=== PATIENT | female | born 1950 | race Caucasian/White ===

== ENCOUNTER → 2023-10-10 10:31 | Outpatient (REF) | payer MEDICARE, OTHER, SELFPAY ==
[2023-10-10 11:37] LABS: ALT (SGPT) 12 U/L (0-35); AST (SGOT) 23 U/L (14-36); Albumin 3.7 g/dl (3.5-5.0); Alkaline Phosphatase 87 U/L (38-126); Blood Urea Nitrogen 13 mg/dl (7-17); Calcium 9.9 mg/dl (8.4-10.2); Carbon Dioxide 31 mmol/L (22-30); Chloride 99 mmol/L (98-107); Glucose 99 mg/dl (70-99); Potassium 3.9 mmol/L (3.5-5.1); Sodium 138 mmol/L (135-145); Total Bilirubin 0.7 mg/dl (0.2-1.3); Total Protein 6.2 g/dl (6.3-8.2); eGFR > 60.00
== END ==
LOC: REG 10:31
PROVIDERS: ATTENDING PHYSICIAN Family Medicine
DX: E87.6 Hypokalemia (principal)
CPT/HCPCS: 36415; 80053

== ENCOUNTER 2024-01-22 02:14 | Inpatient (IN) | payer MEDICARE, OTHER, SELFPAY ==
[2024-01-21 20:35] VITALS: BP 119/78
[2024-01-21 21:07] LABS: % Basophils 0.3 % (0-2); % Eosinophils 0.3 % (0-6); % Immature Granulocytes 0.3 % (0-0.5); % Monocytes 11.4 % (1.7-9.3); % Neutrophils 65.7 % (42.2-75.2); Absolute Lymphocytes 1.8 10^3/uL (1.2-3.4); Absolute Monocytes 0.9 10^3/uL (0.1-0.6); Absolute Neutrophils 5.3 10^3/uL (1.4-6.5); Hematocrit 37.7 % (37.0-47.0); Hemoglobin 13.8 g/dL (12.0-16.0); Mean Corp Hgb Conc. 36.6 g/dL (33.0-37.0); Mean Corpuscular Hgb 36.2 pg (27.0-31.0); Mean Platelet Volume 9.7 fL (7.4-10.4); Nucleated Red Blood Cells % 0 %; Platelet Count 210 10^3/uL (130-400); Red Blood Cell Count 3.81 10^6/uL (4.20-5.40); Red Cell Dist. Width 13.5 % (11.5-14.5)
[2024-01-21 21:33] LABS: ALT (SGPT) 13 U/L (0-35); AST (SGOT) 31 U/L (14-36); Albumin 4.1 g/dl (3.5-5.0); Alkaline Phosphatase 93 U/L (38-126); Blood Urea Nitrogen 23 mg/dl (7-17); Calcium 9.6 mg/dl (8.4-10.2); Carbon Dioxide 31 mmol/L (22-30); Chloride 89 mmol/L (98-107); Glucose 118 mg/dl (70-99); Potassium 2.5 mmol/L (3.5-5.1); Sodium 129 mmol/L (135-145); Total Bilirubin 0.9 mg/dl (0.2-1.3); Total Protein 6.4 g/dl (6.3-8.2)
[2024-01-21 21:44] LABS: Troponin I 0.032 ng/ml
[2024-01-21 21:49] VITALS: BMI 19.5
--- NOTE | 2024-01-21 21:52 | EDRN ---
Pt says she passed out four times today striking her head each time on hard wood floor. Pt says her legs got very wobbly and her hands got shaky so pt would try to grab counter but her reach was off and she passed out and fell. LOC 'not very long,
minute tops' per pt. Pt does not use ambulatory aides. Pt finished 4 weeks of keflex 8-9 days ago and says it destroyed her appetite so she has been trying to eat yogurt without much success.Pt has headache currently and her neck hurts. Pt denies
cp, sob, abd pain, n/v/d/constipation, fever/cough/chills. Pt has generalized weakness.
[2024-01-21 22:00] VITALS: BP 137/81
--- NOTE | 2024-01-21 22:25 | EDRN ---
Cleaned all new skin tears on lower anterior legs with NS, pushed back all skin where possible, applied abx on all - bandaids on smaller ones and telfa dressing with paper tape on larger one.
--- NOTE | 2024-01-21 22:31 | ED.GENMED ---
History of Present Illness
General
Chief Complaint: Fainting/Passed Out
Source: patient and previous hospital records (Previous hospitalization May 2023 for somewhat similar complaint, noted to be hypokalemic, hyponatremic.)
Exam Limitations: none
Time Seen by Provider: 01/21/24 22:02
Nursing documentation reviewed up to this point in time: agreed with
History of Present Illness
History of Present Illness:
This is a papito 73-year-old woman who resides at home with her sister. She has history of hypertension, hyperlipidemia, TIA, chronic neck and back pain with previous hospitalization May 2023 for somewhat similar complaints of syncopal event,
generalized weakness related to hypokalemia, dehydration/acute kidney injury.
She complains of generalized weakness and recurrent syncopal events today while she was at a friend's house watching her dog. She states her arms and legs feel weak, shaky and she has had 4 episodes of syncope with prodrome of lightheadedness,
tunnel vision. She suspects she struck her head but is unsure. She does admit to moderate generalized headache as well as some mild posterior neck pain. No radicular signs or symptoms.
She takes no anticoagulants.
She has been compliant with daily potassium tablet. No recent change in medications.
No recent URI nor GI illness. She denies cough or chest pain, denies fever nor chills.
She did suffer a significant avulsion injury left anterior lower leg/striking her leg on a golf cart, July of this year. Tdap given at that time. She has had very slow wound healing and has been following with her PCP. Had been prescribed
Keflex for local wound infection/cellulitis.
Past History
Past History
ED Past Medical History: CVA, GERD, HTN, Hypercholesterolemia and Other (Symptomatic hypokalemia, symptomatic hyponatremia, acute kidney injury related to dehydration)
ED Past Surgical History: Gynecological (Breast lumpectomies) and Orthopedic
Social History
Tobacco: Smoker
Alcohol: Occasional
Personal: Single
Living: with family (Resides with her sister)
Employment: Retired
Family History
Family History: Other (Noncontributory)
Phy Exam
Physical Exam
Physical Exam:
GENERAL: 73-year-old woman appears her stated age. Thin build. She is bright and alert, pleasant, easily communicative and appears in no acute distress.
EYE: pupils equal and reactive. anicteric. The head is normocephalic, atraumatic.
NECK: Supple, no midline bony tenderness. No palpable step-off deformity. Mild pain with bilateral rotation. No meningismus, no significant adenopathy.
ENT: posterior pharynx is clear, oral mucosa is minimally dry. TM clear b/l, nares patent.
CARDIAC: Regular rate and rhythm. no murmur.
LUNGS: Clear breath sounds bilaterally, no acute respiratory distress, no wheezes/rales/rhonchi. No palpable chest wall tenderness
ABDOMEN: Soft, nondistended, without focal tenderness, no r/g, no cvat. normoactive BS.
BACK: No midline bony tenderness. Patient sits up readily head without difficulty.
NEUROLOGICAL: Alert and oriented x3, no focal neuro deficits. Motor strength is 5/5 bilaterally. Gross sensation is intact.
SKIN: Warm and dry, normal color, there is a subacute healing wound to left anterior lower leg with intact eschar. Very minimal pinkish discoloration surrounding but no palpable heat nor palpable tenderness. Superficial abrasion/skin tear wounds
bilateral anterior knees. No active bleeding. No palpable bony tenderness.
MUSCULOSKELETAL: No C/C/E. peripheral pulses are full and equal b/l. No palpable tenderness. Full range of motion of extremities without difficulty nor pain.
PSYCH: Normal and appropriate interaction.
Course
Orders/Labs/Results
Orders:
Orders
01/21/24 20:43
ECG [Electrocardiogram (*1)] Urgent
Reason for Study: Syncope
Cardiology Consult: Marina Erazo
01/21/24 20:44
EKG- Treatment ONCE
01/21/24 20:48
CT Head W/o Iv Contrast Urgent
Reason For Exam: head injury
01/21/24 20:56
CT Cervical Spine W/o Iv Contr Urgent
Comment:
Reason For Exam: fall
01/21/24 21:01
Complete Blood Count/With Diff Urgent
Comprehensive Metabolic Panel Urgent
Magnesium Urgent
Comment: ADDON
Troponin I Urgent
Comment: .
01/21/24 22:04
Add On- LAB Urgent
Tests Added?: Magnesium
01/21/24 22:29
KCl 40 Meq/0.9%Sodchl 1000 ml [NSS with KCL 40 MEQ] 40 meq in 1,000 ml IV 200 mls/hr
01/21/24 23:05
Potassium Chloride [KCl] 40 meq 0.9% Sodium Chloride 250 ml [Nss] 250 ml IV NOW
Abnormal Lab Results
01/21/24
21:01
RBC 3.81 L 10^6/uL
(4.20-5.40)
MCH 36.2 H pg
(27.0-31.0)
Absolute Monos (auto) 0.9 H 10^3/uL
(0.1-0.6)
Monocytes % 11.4 H %
(1.7-9.3)
Sodium 129 L mmol/L
(135-145)
Potassium 2.5 L* mmol/L
(3.5-5.1)
Chloride 89 L mmol/L
(98-107)
Carbon Dioxide 31 H mmol/L
(22-30)
BUN 23 H mg/dl
(7-17)
Creatinine 1.8 H mg/dL
(0.6-1.0)
Glucose 118 H mg/dl
(70-99)
Magnesium 1.3 L mg/dl
(1.6-2.3)
01/21/24 21:01
01/21/24 21:01
Vital Signs
Initial and Last Documented VS:
Initial Vital Signs
Temp Pulse Resp BP Pulse Ox
99 F 101 20 119/78 97
01/21/24 20:35 01/21/24 20:35 01/21/24 20:35 01/21/24 20:35 01/21/24 20:35
Last Documented Vital Signs
Temp Pulse Resp BP Pulse Ox
99 F 87 20 143/81 97
01/21/24 20:35 01/22/24 00:00 01/22/24 00:00 01/21/24 23:00 01/21/24 20:35
MDM/Problems Addressed
Differential Diagnosis Includes:
Patient presents with generalized weakness, several episodes of extremity shaking then proceeds to pass out. She has full recollection of the events. Believes she may have struck her head and does admit to a headache.
Very similar episodes noted during hospitalization May 2023, noted to be hypokalemic as well as acute kidney injury/dehydration.
Concern for acute intracranial injury, will check CT of the head.
She does note some posterior neck pain and has history of cervical DJD, no radicular signs or symptoms. Will check CT of the C-spine.
Labs are remarkable for significant hypokalemia at 2.5. Moderate hyponatremia at 129.
Acute kidney injury with creatinine of 1.8, baseline is 0.8-1.0.
Troponin is normal at 0.032.
Will check magnesium level, prior history of hypomagnesemia accompanying hypokalemia.
EKG shows normal sinus rhythm, flattened T waves with prolonged QT, overall similar to previous EKG May 13, 2023
Will initiate IV fluid replacement as well as IV potassium.
Due to significant symptomatic hypokalemia, acute kidney injury and recurrent syncopal events patient will require acute hospitalization.
Chronic conditions affecting care: Other (Similar episodes of symptomatic hypokalemia, acute kidney injury, hyponatremia.)
*Radiology
Radiology exam reviewed: radiology read reviewed (CT of the head and C-spine showed no acute findings)
*Pulse Oximetry
Patient hypoxic: no
*EKG
Interpreted by ED Provider?: Yes
Interpretation: normal
Comparison EKG: no changes (Unchanged from previous May 2023)
Rate: normal
Rhythm: sinus
[place]: normal axis
Interval: long QT
QRS Pattern: normal QRS
Ischemia: no ischemia
*Frame Stripper Interpretation
Rate: normal
Interpretation: normal
Rhythm: sinus
*Critical Care Note
Total Time (30-74mins, 75-104mins- exclusive of procedures): Not Applicable
Update Note
Update Note:
01/22/[address] head and cervical spine show no acute traumatic findings.
Magnesium moderately low at 1.3. Will replete with IV mag sulfate
Will admit to hospitalist service
ED Attending Note
-
Portions of this chart may have been created with voice recognition software.� Occasional wrong word or��sound alike� substitutions may have occurred due to the inherent limitations of voice recognition software.
Discharge Plan
Departure
Patient Disposition: Admit
Date of Disposition: 01/22/24
Time of Disposition: 00:18
Admit to: Telemetry
Admit to doctor: Jeanne
Presentation/result/management discussed w/ accepting MD/DO: Hospitalist
Condition: Fair
Discharge Problem:
severe, symptomatic hypokalemia, DARVIN (acute kidney injury), Acute hyponatremia, Recurrent syncope, Hypomagnesemia
Prescriptions:
No Action
amlodipine 5 MG tablet
7.5 mg PO DAILY
rosuvastatin 20 mg Tablet
20 mg PO DAILY
acetaminophen [Tylenol] 325 mg Tablet
650 mg PO Q6HPRN PRN (Reason: back pain)
therapeutic multivitamin Tablet
1 tab PO DAILY
cholecalciferol (vitamin D3) [Vitamin D3] 25 mcg (1,000 unit) Capsule
25 mcg PO DAILY
cyanocobalamin (vitamin B-12) 1,000 mcg Capsule
1,000 mcg PO DAILY
omeprazole 20 mg Tablet,Delayed Release (Dr/Ec)
20 mg PO DAILY
lisinopril 20 mg tablet
20 mg PO DAILY Qty: 30 0RF
potassium chloride
1 tab PO DAILY
Patient Comments:
pt does not know meq
Referrals:
Sylvester Liu MD [Family Provider] -
Interventions
Interventions:
*Risk Screen - Suicide Last Done: 01/21/24 20:35
*General Assessment Last Done: 01/21/24 20:35
*Neglect/Abuse Screening Last Done: 01/21/24 20:35
ED- Fall Risk Assessment Last Done: 01/21/24 22:22
*ED COVID-19 Vaccine History Last Done: 01/21/24 20:35
ED- Cardiac Assessment Last Done: 01/21/24 22:22
ED- Neurological Assessment Last Done: 01/21/24 22:22
Discharge Date and Time
Print Language: COMORAN
[2024-01-21] MEDS: NSS with KCL 40 MEQ 1000 IV (22:45)
[2024-01-21 22:54] LABS: Magnesium 1.3 mg/dl (1.6-2.3)
[2024-01-21 23:00] VITALS: BP 143/81
--- NOTE | 2024-01-21 23:05 | EDRN ---
Called pharmacy for KCL infusion
[2024-01-21] MEDS: KCL 270 MEQ IV (23:15)
[2024-01-22] VITALS (9 sets, daily range): BP systolic 87–148; BP diastolic 56–86; PULSE 83–105; BMI 20.2
[2024-01-22] MEDS: MAGNESIUM SULFATE 50 IV (00:34)
--- NOTE | 2024-01-22 01:36 | HPS.HSE ---
Family Physician
-
Family Physician: Sylvester Liu
Chief Complaint
-
Syncope
History of Present Illness
Patient is a 73-year-old female with hypertension who presents to the emergency room after multiple episodes of syncope at home. Patient describes feeling lightheaded with tunnel vision and then passing out. Last episode was noticed by patient's
friend when she was trying to leave the dog. Patient denies any chest pain or shortness of breath. She has been compliant with her antihypertensive medication regimen. She admits to low oral intake due to poor appetite being on Keflex over the
last 4 weeks for left neves wound after he did buy golf cart. She is currently off antibiotics. She denies diarrhea.
She had similar admission in the past close 2 years ago with orthostasis and acute kidney injury.
Medical History
Past Medical History
Past Medical History: Reports GERD, HTN, Hypercholesterolemia and Other (Spinal stenosis); Denies Arrhythmia or CAD
Past Surgical History: Reports Other (Lumpectomy, parathyroid surgery)
Social History
Tobacco: Smoker
Drug: None
Employment: Retired
Family History
Family History: Not pertinent
Allergies / Home Medications
Allergies reflects when Allergies were last updated in [facility].
Home Medications with original date entered in [facility]
Allergy/Medication List:
Allergies
Allergy/AdvReac Type Severity Reaction Status Date / Time
latex [Latex] Allergy sore throat Verified 01/21/24 20:35
Penicillins Allergy Hives Verified 01/21/24 20:35
Home Medications
amlodipine 5 mg tablet 7.5 mg PO DAILY Blood pressure 09/16/10
rosuvastatin 20 mg tablet 20 mg PO DAILY High cholesterol 07/17/22
acetaminophen 325 mg tablet (Tylenol) 650 mg PO Q6HPRN PRN back pain 07/18/22
cholecalciferol (vitamin D3) 25 mcg (1,000 unit) capsule (Vitamin D3) 25 mcg PO DAILY Supplement 07/18/22
cyanocobalamin (vitamin B-12) 1,000 mcg capsule 1,000 mcg PO DAILY Supplement 07/18/22
therapeutic multivitamin 1 tab PO DAILY Supplement 07/18/22
omeprazole 20 mg tablet,delayed release 20 mg PO DAILY Gastrointestinal Issue 05/12/23
lisinopril 20 mg tablet 20 mg PO DAILY Blood pressure #30 tabs 05/16/23
potassium chloride 1 tab PO DAILY 01/21/24
Review of Systems
-
A 12 point ROS was completed and negative except as noted: Yes
Physical Exam
Vital Signs
Vital Signs
Temp Pulse Resp BP Pulse Ox
99 F 86 20 113/83 97
01/21/24 20:35 01/22/24 01:00 01/22/24 01:00 01/22/24 01:00 01/21/24 20:35
Physical Exam
General: Well Developed, Well Nourished and No Apparent Distress
HEENT: NormoCephalic, Moist mucous membranes and Atraumatic
Respiratory: Clear
Cardiac: S1/S2 and Regular Rhythm; No Murmur or Rub
GI: Soft, Non Tender, Non Distended and Normal Bowel Sounds; No Organomegaly
Rectal: Deferred by Provider
Musculoskeletal: No Clubbing, No Cyanosis, No Edema and Other (Bilateral lower extremity erythema and induration due to venous stasis, left lower extremity superficial wound with necrotic eschar and mild erythema and induration surrounding.)
Skin: No Rash
Neuro: Awake, Alert, Oriented, AO x 3 and Nonfocal/grossly intact
Laboratory Results
-
01/21/24 21:01
01/21/24 21:01
Laboratory Results
Total Bilirubin 0.9 mg/dl (0.2-1.3) 01/21/24 21:01
AST 31 U/L (14-36) 01/21/24 21:01
ALT 13 U/L (0-35) 01/21/24 21:01
Alkaline Phosphatase 93 U/L (38-126) 01/21/24 21:01
Troponin I 0.032 ng/ml 01/21/24 21:01
Impression/Plan
-
IMPRESSION:
Recurrent syncope.
Acute kidney injury.
Hypokalemia.
Hypomagnesemia.
Hyponatremia
Alkalosis
Conditions prior to admission:
Essential hypertension
Dyslipidemia
Spinal stenosis
History of parotid gland surgery.
History of lumpectomy
GERD.
PLAN:
Multiple syncopal events with prodrome most likely due to orthostatic hypotension in the settings of dehydration with acute kidney injury
ECG normal sinus rhythm with no ischemic changes
Echocardiogram 03/02 with preserved biventricular function and no valvular abnormalities.
Reports head trauma, although with no neurologic abnormalities upon presentation
CT scan of the head and cervical spine with no trauma
Check orthostatic vital symptoms
Treat DARVIN, dehydration
Physical therapy evaluation
Acute kidney injury creatinine 1.8
Hyponatremia
Hypokalemia
Hypomagnesemia
Contraction alcohol
Most likely precipitated by poor appetite and low oral intake blamed on recent antibiotic course.
Currently with no gastrointestinal symptoms
Initiated on IV fluids with potassium and magnesium
Follow BMP.
Hold antihypertensives including lisinopril and amlodipine.
Full code
DVT prophylaxis heparin
--- NOTE | 2024-01-22 03:01 | PTCARENOTE ---
Pt transferred from ED. Pt AAOX3, able to make needs known. Pt oriented to unit, call patel within reach.
[2024-01-22] MEDS: TYLENOL 650 MG PO (03:07)
[2024-01-22 08:00] LABS: % Basophils 0.4 % (0-2); % Eosinophils 1.2 % (0-6); % Immature Granulocytes 0.5 % (0-0.5); % Lymphocytes 29.8 % (20.5-51.1); % Neutrophils 54.1 % (42.2-75.2); Absolute Eosinophils 0.1 10^3/uL (0-0.7); Absolute Lymphocytes 1.7 10^3/uL (1.2-3.4); Absolute Monocytes 0.8 10^3/uL (0.1-0.6); Absolute Neutrophils 3.1 10^3/uL (1.4-6.5); Hematocrit 32.6 % (37.0-47.0); Hemoglobin 11.6 g/dL (12.0-16.0); Mean Corp Hgb Conc. 35.6 g/dL (33.0-37.0); Mean Corpuscular Hgb 36.1 pg (27.0-31.0); Mean Corpuscular Volume 101.6 fL (81.0-99.0); Mean Platelet Volume 10.2 fL (7.4-10.4); Nucleated Red Blood Cells % 0 %; Platelet Count 180 10^3/uL (130-400); Red Blood Cell Count 3.21 10^6/uL (4.20-5.40); Red Cell Dist. Width 13.2 % (11.5-14.5); White Blood Cell Count 5.7 10^3/uL (4.8-10.8)
[2024-01-22 08:36] LABS: Blood Urea Nitrogen 19 mg/dl (7-17); Calcium 8.5 mg/dl (8.4-10.2); Carbon Dioxide 27 mmol/L (22-30); Chloride 99 mmol/L (98-107); Estimated Creatinine Clearance 32 ml/min; Glucose 81 mg/dl (70-99); Magnesium 2.4 mg/dl (1.6-2.3); Potassium 3.5 mmol/L (3.5-5.1); Sodium 131 mmol/L (135-145); eGFR 43.15
[2024-01-22] MEDS: HEPARIN 5000 UNITS SC ×2 (08:56→21:09)
[2024-01-22] MEDS: THERAGRAN 1 TABLET PO (08:56)
[2024-01-22] MEDS: PROTONIX 40 MG PO (08:56)
[2024-01-22] MEDS: CRESTOR 20 MG PO (08:56)
--- NOTE | 2024-01-22 10:12 | CM ---
Patient seen bedside.
IA completed.
Patient lives with sister in a 2 story home, 2 +5 steps.
Patient independent prior to admission without AD.
Patient drives.
Patient had [facility] in the past.
PCP: Dr Liu
Pharmacy: [facility]
Plan: home no needs anticipated.
--- NOTE | 2024-01-22 13:14 | W.PN.HOSP.TC ---
Today's Communication/Plan
-
cont IVF today
follow labs/orthostatics
Assessment / Plan
Assessment / Plan
pt is a 73 yo female
Multiple syncopal events with prodrome most likely due to orthostatic hypotension in the settings of dehydration with acute kidney injury likely from chronic ABX use--cont IVF--pt orthostatic by numbers this AM but cannot tell me if she was
symptomatic--Echocardiogram 03/02 with preserved biventricular function and no valvular abnormalities--Reports head trauma, although with no neurologic abnormalities upon presentation--head CT negative--follow orthostatics and labs--PT/OT
Acute kidney injury with Hyponatremia/Hypokalemia/Hypomagnesemia-- creatinine 1.8 on admission down to 1.3--cont IVF--Currently with no gastrointestinal symptoms
Essential HTN--Hold antihypertensives including lisinopril and amlodipine--restart as able
code status -- Full code
DVT prophylaxis heparin
Anticipated Discharge: Within 24 hours
Subjective/Interval History
-
Date of Service: January 22, 2024
pt feeling 1000x better
Objective Data
-
Labs:
Laboratory Results
01/22/24
06:27
WBC 5.7
Hgb 11.6 L
Hct 32.6 L
Plt Count 180
Sodium 131 L
Potassium 3.5 D
Chloride 99
Carbon Dioxide 27
BUN 19 H
Creatinine 1.3 H
Glucose 81
Calcium 8.5
Vital Signs:
max temp for 24 hours
01/21/24
20:35
Temp 99 F
Vital Signs
Temp Pulse Resp BP Pulse Ox
98.2 F 88 16 106/70 100
01/22/24 11:24 01/22/24 11:24 01/22/24 11:24 01/22/24 11:24 01/22/24 11:24
I&O
01/21/24 01/22/24 01/23/24
06:59 06:59 06:59
Intake Total 480 / 480
Balance 480 / 480
Review of Systems
-
All other systems: Reviewed and negative
Physical Exam
-
General: Well Developed, Well Nourished and No Apparent Distress
HEENT: Normocephalic and Atraumatic; Negative Oxygen
Respiratory: Clear to Auscultation; Negative Wheezes or Rhonchi
Cardiac: Regular Rhythm and S1/S2; Negative Murmur
GI: Soft, Nontender, Nondistended and Normal Bowel Sounds
Musculoskeletal: No Clubbing, No Cyanosis and No Edema
Neuro: Awake and Alert
[2024-01-22] MEDS: NSS 1000 IV (13:23)
[2024-01-23] MEDS: NSS 1000 IV (01:25)
[2024-01-23 03:00] VITALS: BP 143/84
[2024-01-23 03:31] VITALS: BP 143/84
[2024-01-23 07:00] VITALS: BP 187/106
[2024-01-23] MEDS: CRESTOR 20 MG PO (07:58)
[2024-01-23] MEDS: PROTONIX 40 MG PO (07:58)
[2024-01-23] MEDS: HEPARIN 5000 UNITS SC (07:58)
[2024-01-23] MEDS: THERAGRAN 1 TABLET PO (07:58)
[2024-01-23 08:20] LABS: Hematocrit 34.5 % (37.0-47.0); Hemoglobin 12.3 g/dL (12.0-16.0); Mean Corp Hgb Conc. 35.7 g/dL (33.0-37.0); Mean Corpuscular Hgb 36.5 pg (27.0-31.0); Mean Corpuscular Volume 102.4 fL (81.0-99.0); Mean Platelet Volume 10.1 fL (7.4-10.4); Platelet Count 180 10^3/uL (130-400); Red Blood Cell Count 3.37 10^6/uL (4.20-5.40); Red Cell Dist. Width 13.1 % (11.5-14.5); White Blood Cell Count 6.3 10^3/uL (4.8-10.8)
[2024-01-23 09:05] VITALS: BP 152/86; BP 177/86; BP 177/90; PULSE 104; PULSE 93; PULSE 95
[2024-01-23 09:07] LABS: ALT (SGPT) 10 U/L (0-35); AST (SGOT) 27 U/L (14-36); Albumin 3.3 g/dl (3.5-5.0); Alkaline Phosphatase 84 U/L (38-126); Blood Urea Nitrogen 16 mg/dl (7-17); Calcium 9.2 mg/dl (8.4-10.2); Carbon Dioxide 23 mmol/L (22-30); Chloride 104 mmol/L (98-107); Estimated Creatinine Clearance 59 ml/min; Glucose 84 mg/dl (70-99); Magnesium 1.6 mg/dl (1.6-2.3); Potassium 3.5 mmol/L (3.5-5.1); Sodium 134 mmol/L (135-145); Total Bilirubin 0.5 mg/dl (0.2-1.3); Total Protein 5.6 g/dl (6.3-8.2); eGFR > 60.00
--- NOTE | 2024-01-23 09:11 | W.PN.HOSP.TC ---
Addendum entered and electronically signed by Maureen Allred MD 01/23/24 13:58:
I saw and evaluated the patient independently. I reviewed the resident�s note and agree with findings and plan as documented by Dr. Au.
GENERAL: well developed, well nourished, female in no apparent distress
HEENT: NC/AT
HEART: regular rate and rhythm, +S1, +S2
LUNGS : clear to auscultation bilaterally
ABDOM: soft, nontender, nondistended, + bowel sounds
EXT: no cyanosis, clubbing, or edema
NEUROLOGIC: grossly intact
Multiple syncopal events with prodrome most likely due to orthostatic hypotension in the settings of dehydration with acute kidney injury likely from chronic ABX use (resolved)--stop IVF--Echocardiogram 02/2023 with preserved biventricular function
and no valvular abnormalities--Reports head trauma, although with no neurologic abnormalities upon presentation--head CT negative
Acute kidney injury with Hyponatremia/Hypokalemia/Hypomagnesemia--(resolved)-- creatinine 1.8 on admission down to 0.7
Essential HTN--Held antihypertensives including lisinopril and amlodipine--restarted
code status -- Full code
DVT prophylaxis heparin
D/C
Original Note:
Today's Communication/Plan
-
Discharge planning
Assessment / Plan
Assessment / Plan
pt is a 73 yo female
Multiple syncopal events with prodrome most likely due to orthostatic hypotension in the settings of dehydration with acute kidney injury likely from chronic ABX use--improved appetite with adequate PO intake. Discont IVF--pt orthostatic by systolic
numbers this AM but denies symptoms, with supine BP in 177/86 and standing 152/86---Echocardiogram 03/02 with preserved biventricular function and no valvular abnormalities--Reports head trauma, although with no neurologic abnormalities upon
presentation--head CT negative, C-spine CT negative--follow orthostatics and labs--PT/OT
Acute kidney injury with Hyponatremia/Hypokalemia/Hypomagnesemia-- creatinine 1.8 on admission down to 0.7. No GI symptoms, normal PO intake today. IVF discontinued. Na+ improved (134), Hypomagnesemia and hypokalemia resolved. Follw BMP
Essential HTN--amlodipine and lisinopril discontinued at admission. Resumed today
code status -- Full code
DVT prophylaxis heparin
Anticipated Discharge: Today
Subjective/Interval History
-
Date of Service: January 23, 2024
Pt feels better. Improved appetite and good PO intake at breakfast. Denies dizziness.
Objective Data
-
Labs:
Laboratory Results
01/23/24
07:39
WBC 6.3
Hgb 12.3
Hct 34.5 L
Plt Count 180
Sodium 134 L
Potassium 3.5
Chloride 104
Carbon Dioxide 23
BUN 16
Creatinine 0.7
Glucose 84
Calcium 9.2
Total Bilirubin 0.5
AST 27
ALT 10
Alkaline Phosphatase 84
Vital Signs:
Vital Signs
Temp Pulse Resp BP Pulse Ox
98.1 F 91 18 187/106 96
01/23/24 07:00 01/23/24 07:00 01/23/24 07:00 01/23/24 07:00 01/23/24 07:00
I&O
01/22/24 01/23/24 01/24/24
06:59 06:59 06:59
Intake Total 480 / 480 2400 / 2400
Balance 480 / 480 2400 / 2400
Review of Systems
-
History Source: Patient
Respiratory: Reports No Symptoms; Denies Trouble Breathing
Cardiac: Denies No Symptoms, Chest Pain, Palpitations or Syncope
Abdomen/GI: Denies Abdominal Pain, Nausea or Vomiting
Neuro: Denies Dizzy or Headache
Physical Exam
-
HEENT: Negative Moist Mucous Membranes or Anicteric
Respiratory: Clear to Auscultation and Non Labored Respirations; Negative Wheezes, Rales, Rhonchi or Crackles
Cardiac: Regular Rhythm and S1/S2; Negative Murmur or Rub
GI: Soft, Nontender and Nondistended
Musculoskeletal: No Clubbing, No Cyanosis and No Edema
Skin: Warm, Dry and Other (skin tears on bilateral legs with dressings intact, no swelling or bleeding noted. small healing (scabbed) wound on left neves, dry, intact with no swelling, purulence or bleeding. )
Neuro: Awake, Alert and Oriented
Psych: Calm
[2024-01-23] MEDS: ZESTRIL 20 MG PO (10:27)
[2024-01-23] MEDS: NORVASC 7.5 MG PO (10:27)
[2024-01-23 11:00] VITALS: BP 157/93
--- NOTE | 2024-01-23 15:18 | CM ---
Patient seen at bedside. patient indicated that she has no needs that she anticipates at discharge. IMM completed and signed form placed on chart. CM will continue to follow for discharge planning needs.
Plan; home with no needs
--- NOTE | 2024-01-23 19:18 | W.DCSUMMARY ---
Addendum entered and electronically signed by Maureen Allred MD 01/23/24 20:10:
Read, reviewed, and agree. See same day progress note for additional details. Time spent coordinating care, DC planning, review of DC plan of care with resident, transition of care, review of records in EMR, med rec, consults, notes, d/w
consultants, nursing, family, and CM = < 30 mins.
Original Note:
Discharge Summary
Discharge Data
Date of Admission: 01/21/24
Date of Discharge: 01/23/24
-
Pending Results: No
Hospital Course
Discharge Physician: Susan Au MD; Maureen Allred MD
Primary discharge diagnosis: Syncope, dehydration, acute kidney injury, hyponatremia, hypomagnesemia, hypokalemia
Chronic conditions prior to admission: Hypertension, hypercholesterolemia, GERD,
Hospital course
73-year-old female with history of hypertension hyperlipidemia, GERD who presented to ED on 01/21 with recurrent syncope with prodrome, falls/head trauma. She noted reduced appetite with poor p.o. intake, and history of chronic ABX use with
abdominal discomfort. Upon arrival, vitals were stable, she was hyponatremic 129, hypokalemic 2.5, hypomagnesemic 1.3, with creatinine 1.8. Head CT was negative, C-spine CT showed no acute abnormality, troponin was normal, EKG showed normal sinus
rhythm with nonspecific T wave abnormality.
Orthostatic vitals were positive and home hypertensives were held. IV fluids was initiated, magnesium and potassium were repleted.
Acute kidney injury improved with return of creatinine to baseline 0.7
Patient's appetite and oral intake improved significantly. Home antihypertensives were continued. hypernatremia significantly improved with IV fluids (to 134), hypomagnesemia, hypokalemia resolved by end of stay
Patient was discharged on 01/22 to home.
Relevant data:
EKG 01/20: Normal sinus rhythm. Possible left atrial enlargement. Left ventricular hypertrophy. Nonspecific T wave abnormality.
Cervical spine CT 01/20: No acute abnormalities. Multilevel cervical degenerative disc disease most prominent at C5-C6 where mild concentric bulging of the intervertebral disc along with posterior spurring of the endplates posteriorly is
associated with mild cord impingement and moderate bilateral C6 foraminal stenosis. Osseous fusion at the left C2-[address] 01/20: There are no acute intracranial abnormalities. There is mild diffuse cortical and cerebellar atrophy. There is 5 mm stable old lacunar infarct in the posterior inferior aspect of the right putamen
Discharge Plan
-
Patient Disposition: Home (Routine Discharge)
Discharge Diagnosis/Procedures: Syncope, Acute Kidney injury, Hypertension, Hyponatremia, hypomagnesemia, Hypokalemia
Condition: Fair
Diet: 2 Gram Sodium
Activity: No restrictions
Driving Restrictions: As prior to admission
Bathing Restrictions: None
Instructions: Syncope (fainting), Orthostatic hypotension
Referrals:
Sylvester Liu MD [Family Provider] -
Prescriptions:
Continued
amlodipine 5 MG tablet
7.5 mg PO DAILY
rosuvastatin 20 mg Tablet
20 mg PO DAILY
acetaminophen [Tylenol] 325 mg Tablet
650 mg PO 5/D
therapeutic multivitamin Tablet
1 tab PO DAILY
cholecalciferol (vitamin D3) [Vitamin D3] 25 mcg (1,000 unit) Capsule
25 mcg PO DAILY
cyanocobalamin (vitamin B-12) 1,000 mcg Capsule
1,000 mcg PO DAILY
omeprazole 20 mg Tablet,Delayed Release (Dr/Ec)
20 mg PO DAILY
lisinopril 20 mg tablet
20 mg PO DAILY Qty: 30 0RF
potassium chloride 20 mEq Tablet Extended Release
20 meq PO DAILY
Discharge Orders:
Discharge Patient (As Directed); Ordered 01/23/24
Ordered By: Susan Au
Discharge Date and Time
Discharge Date/Time: 01/23/24 15:00
Print Language: BURKINAN
== END 2024-01-23 15:00 | disposition home or self-care (01) | DRG 683 ==
LOC: 4 WEST ACU 02:14
PROVIDERS: Student in an Organized Health Care Education/Training Program; ADMITTING PHYSICIAN Internal Medicine; ATTENDING PHYSICIAN Internal Medicine; EMERGENCY PHYSICIAN Emergency Medicine; FAMILY PHYSICIAN Family Medicine
DX: N17.9 Acute kidney failure, unspecified (principal); E87.1 Hypo-osmolality and hyponatremia; I10 Essential (primary) hypertension; E83.42 Hypomagnesemia; E87.6 Hypokalemia; E86.0 Dehydration; Z79.2 Long term (current) use of antibiotics
CPT/HCPCS: 70450; 72125; 80048; 80053; 83735; 84484; 85025; 85027; 87070; 93005; 97161; 99285

== ENCOUNTER → 2024-02-27 14:20 | Outpatient (REF) | payer MEDICARE, OTHER, SELFPAY ==
[2024-02-27 16:03] LABS: Magnesium 1.7 mg/dl (1.6-2.3)
== END ==
LOC: REG 14:20
PROVIDERS: ATTENDING PHYSICIAN Family Medicine
DX: E83.42 Hypomagnesemia (principal)
CPT/HCPCS: 36415; 83735

== ENCOUNTER → 2024-05-24 10:26 | Outpatient (REF) | payer MEDICARE, OTHER, SELFPAY ==
[2024-05-24 11:27] LABS: % Basophils 0.4 % (0-2); % Eosinophils 2.5 % (0-6); % Immature Granulocytes 0.4 % (0-0.5); % Lymphocytes 36.8 % (20.5-51.1); % Monocytes 10.5 % (1.7-9.3); % Neutrophils 49.4 % (42.2-75.2); Absolute Eosinophils 0.1 10^3/uL (0-0.7); Absolute Lymphocytes 2.1 10^3/uL (1.2-3.4); Absolute Monocytes 0.6 10^3/uL (0.1-0.6); Absolute Neutrophils 2.8 10^3/uL (1.4-6.5); Hematocrit 38.9 % (37.0-47.0); Hemoglobin 13.9 g/dL (12.0-16.0); Mean Corp Hgb Conc. 35.7 g/dL (33.0-37.0); Mean Corpuscular Hgb 36.8 pg (27.0-31.0); Mean Corpuscular Volume 102.9 fL (81.0-99.0); Mean Platelet Volume 9.9 fL (7.4-10.4); Nucleated Red Blood Cells % 0 %; Platelet Count 185 10^3/uL (130-400); Red Blood Cell Count 3.78 10^6/uL (4.20-5.40); Red Cell Dist. Width 14.5 % (11.5-14.5); White Blood Cell Count 5.7 10^3/uL (4.8-10.8)
[2024-05-24 11:51] LABS: ALT (SGPT) 17 U/L (0-35); AST (SGOT) 32 U/L (14-36); Albumin 4.2 g/dl (3.5-5.0); Alkaline Phosphatase 83 U/L (38-126); Blood Urea Nitrogen 13 mg/dl (7-17); Calcium 10.4 mg/dl (8.4-10.2); Carbon Dioxide 30 mmol/L (22-30); Chloride 102 mmol/L (98-107); Glucose 99 mg/dl (70-99); HDL Cholesterol 79 mg/dl; LDL Cholesterol, Calculated 109 mg/dl; Potassium 4.1 mmol/L (3.5-5.1); Sodium 141 mmol/L (135-145); Total Bilirubin 0.6 mg/dl (0.2-1.3); Total Cholesterol 212 mg/dl (50-199); Total Protein 6.7 g/dl (6.3-8.2); Triglyceride 124 mg/dl (10-149); Very Low Density Lipoprotein 24 mg/dl (0-30); eGFR 58.75
[2024-05-24 12:22] LABS: TSH 1.13 uIU/ml (0.47-4.68)
[2024-05-24 13:28] LABS: Glycohemoglobin (HgbA1c) 4.7 % (4.0-5.6)
== END ==
LOC: RCS 10:26
PROVIDERS: ATTENDING PHYSICIAN Internal Medicine Interventional Cardiology; FAMILY PHYSICIAN Family Medicine; REFERRING PHYSICIAN Dermatology
DX: I49.3 Ventricular premature depolarization (principal); I10 Essential (primary) hypertension; E78.2 Mixed hyperlipidemia; R23.3 Spontaneous ecchymoses; R73.09 Other abnormal glucose
CPT/HCPCS: 36415; 80053; 80061; 83036; 84443; 85025; 93306

== ENCOUNTER → 2024-06-18 10:01 | Outpatient (REF) | payer MEDICARE, OTHER, SELFPAY | LOC: RAD 10:01 | PROVIDERS: ATTENDING PHYSICIAN Internal Medicine Gastroenterology; FAMILY PHYSICIAN Family Medicine | DX: K76.0 Fatty (change of) liver, not elsewhere classified (principal) | CPT/HCPCS: 76700 ==

== ENCOUNTER → 2024-07-12 11:40 | Outpatient (REF) | payer MEDICARE, OTHER, SELFPAY | LOC: WDC 11:40 | PROVIDERS: ATTENDING PHYSICIAN Family Medicine | DX: Z12.31 Encounter for screening mammogram for malignant neoplasm of breast (principal) | CPT/HCPCS: 77063; 77067 ==

== ENCOUNTER 2024-08-03 06:25 | Day surgery (SDC) | payer MEDICARE, OTHER, SELFPAY | END 2024-08-03 14:41 | disposition home or self-care (01) | LOC: GI 06:25 | PROVIDERS: ATTENDING PHYSICIAN Internal Medicine Gastroenterology | DX: Z12.11 Encounter for screening for malignant neoplasm of colon (principal); Z86.0101 Personal history of adenomatous and serrated colon polyps; K62.89 Other specified diseases of anus and rectum; K57.30 Diverticulosis of large intestine without perforation or abscess without bleeding; D12.3 Benign neoplasm of transverse colon; D12.5 Benign neoplasm of sigmoid colon; K22.89 Other specified disease of esophagus; K44.9 Diaphragmatic hernia without obstruction or gangrene; K31.7 Polyp of stomach and duodenum; K31.89 Other diseases of stomach and duodenum; K22.70 Barrett's esophagus without dysplasia; Z80.0 Family history of malignant neoplasm of digestive organs | CPT/HCPCS: 45385; 45380; 43239; 88305 ==

== ENCOUNTER → 2024-10-10 15:28 | Outpatient (REF) | payer MEDICARE, OTHER, SELFPAY | LOC: PAVMRI 15:28 | PROVIDERS: ATTENDING PHYSICIAN Physical Medicine & Rehabilitation; FAMILY PHYSICIAN Family Medicine | DX: M54.16 Radiculopathy, lumbar region (principal) | CPT/HCPCS: 72148 ==

== ENCOUNTER → 2025-03-28 09:42 | Outpatient (REF) | payer MEDICARE, OTHER, SELFPAY ==
[2025-03-28 10:47] LABS: Hematocrit 36.7 % (37.0-47.0); Hemoglobin 12.9 g/dL (12.0-16.0); Mean Corp Hgb Conc. 35.1 g/dL (33.0-37.0); Mean Corpuscular Volume 103.7 fL (81.0-99.0); Nucleated Red Blood Cells % 0 %; Platelet Count 209 10^3/uL (130-400); Red Cell Dist. Width 12.8 % (11.5-14.5)
[2025-03-28 11:29] LABS: ALT (SGPT) 26 U/L (0-35); AST (SGOT) 41 U/L (14-36); Albumin 4.6 g/dl (3.5-5.0); Alkaline Phosphatase 79 U/L (38-126); Blood Urea Nitrogen 16 mg/dl (7-17); Calcium 9.7 mg/dl (8.4-10.2); Carbon Dioxide 25 mmol/L (22-30); Chloride 106 mmol/L (98-107); Glucose 89 mg/dl (70-99); HDL Cholesterol 70 mg/dl; LDL Cholesterol, Calculated 42 mg/dl; Potassium 4.5 mmol/L (3.5-5.1); Sodium 137 mmol/L (135-145); Total Protein 6.9 g/dl (6.3-8.2); Very Low Density Lipoprotein 37 mg/dl (0-30); eGFR > 60.00
== END ==
LOC: REG 09:42
PROVIDERS: ATTENDING PHYSICIAN Family Medicine
DX: E78.00 Pure hypercholesterolemia, unspecified (principal); R79.89 Other specified abnormal findings of blood chemistry; I10 Essential (primary) hypertension; K22.70 Barrett's esophagus without dysplasia; K76.0 Fatty (change of) liver, not elsewhere classified; E78.2 Mixed hyperlipidemia; E83.42 Hypomagnesemia
CPT/HCPCS: 36415; 80053; 80061; 85025